=== PATIENT | male | born 1980 ===

== ENCOUNTER 2017-10-25 10:04 | Emergency (ER) | payer OTHER ==
[2017-10-25 10:09] VITALS: BP 134/75; PULSE 78; RESP 19; TEMP 98.9; O2SAT 97
--- NOTE | 2017-10-25 11:04 | ED PDOC ---
HPI: General Adult Time Seen by Provider: 10/25/17 11:00 Chief Complaint (Nursing): Abnormal Skin Integrity Chief Complaint (Provider): RASH History Per: Patient (37 Y/O MALE HERE FOR EVALUATION OF GENERALIZED RASH NOTED ON LEGS ONGOING 5 DAYS. DENIES ANY NEW FOODS/LOTIONS. NO MEDICATIONS ATTEMPTED.) Past Medical History Reviewed: Historical Data, Nursing Documentation, Vital Signs Vital Signs: Last Vital Signs Temp 98.9 F 10/25/17 10:08 Pulse 78 10/25/17 10:08 Resp 19 10/25/17 10:08 BP 134/75 10/25/17 10:08 Pulse Ox 97 10/25/17 10:08 - Surgical History Surgical History: Tonsillectomy - Family History Family History: States: No Known Family Hx - Home Medications Home Medications: Ambulatory Orders Medication Instructions Recorded Hydrocortisone 0.5% CREAM 0.5 gm TOP BID PRN #30 gm 10/25/17 [Cortizone 0.5% CREAM] - Allergies Allergies/Adverse Reactions: Allergies Allergy/AdvReac Type Severity Reaction Status Date / Time No Known Allergies Allergy Verified 10/25/17 10:18 Review of Systems ROS Statement: Except As Marked, All Systems Reviewed And Found Negative Physical Exam - Reviewed Nursing Documentation Reviewed: Yes Vital Signs Reviewed: Yes - Physical Exam Appears: Positive for: Well, Non-toxic, No Acute Distress Head Exam: Positive for: ATRAUMATIC, NORMAL INSPECTION, NORMOCEPHALIC Skin: Positive for: Normal Color, Warm, Rash ( SMALL LESIONS LOWER EXTREMITIES.) Eye Exam: Positive for: EOMI, Normal appearance, PERRL ENT: Positive for: Normal ENT Inspection Neck: Positive for: Normal, Painless ROM Cardiovascular/Chest: Positive for: Regular Rate, Rhythm Respiratory: Positive for: CNT, Normal Breath Sounds Gastrointestinal/Abdominal: Positive for: Normal Exam, Soft Back: Positive for: Normal Inspection Extremity: Positive for: Normal ROM Neurologic/Psych: Positive for: Alert, Oriented - ECG O2 Sat by Pulse Oximetry: 97 Disposition - Clinical Impression Clinical Impression: Rash - Patient ED Disposition Is Patient to be Admitted: No - Disposition Referrals: [facility] [Outside] Disposition: Routine/Home Disposition Time: 11:05 Condition: FAIR Prescriptions: Hydrocortisone 0.5% CREAM [Cortizone 0.5% CREAM] 0.5 gm TOP BID PRN #30 gm PRN Reason: Itching / Pruritus Instructions: Heat Rash (Prickly Heat)
== END 2017-10-25 11:56 | disposition home or self-care (01) ==
LOC: H.ER 10:04
DX: L74.0 Miliaria rubra (principal)